=== PATIENT | male | born 1995 | race Caucasian/White ===

== ENCOUNTER 2024-02-12 23:50 | Emergency (ER) | payer SELFPAY ==
[~2024-02-12] VITALS: Ht 162.6 cm; Wt 86.2 kg
[2024-02-13 00:11] VITALS: BP 121/72; PULSE 92; RESP 16; TEMP 97.8; O2SAT 98
[2024-02-13 00:49] VITALS: BP 121/72; PULSE 92; RESP 16; TEMP 97.8; O2SAT 98
[2024-02-13] MEDS ORDERED: DEXA5SUS20 LEFT EYE (01:27)
[2024-02-13] MEDS ORDERED: KETO10SO LEFT EYE (01:27)
[2024-02-13] MEDS ORDERED: NAPR-1704 PO (01:31)
== END 2024-02-13 01:36 | disposition home or self-care (01) ==
LOC: MED 23:50
DX: H10.12 Acute atopic conjunctivitis, left eye (principal); H11.002 Unspecified pterygium of left eye; R42 Dizziness and giddiness; R51.9 Headache, unspecified; Z79.1 Long term (current) use of non-steroidal anti-inflammatories (NSAID); Z79.899 Other long term (current) drug therapy
CPT/HCPCS: 99283